=== PATIENT | female | born 1935 | race Caucasian/White ===

== ENCOUNTER 2021-01-04 13:11 | Inpatient (IN) | payer MEDICARE ==
[2021-01-04 14:15] LABS: Hemoglobin 15.5 g/dL (12.0-16.0); Mean Corpuscular HGB CONC 33.3 g/dL (32.0-36.0); Mean Corpuscular Hemoglobin 32.4 pg (27.0-31.0); Mean Corpuscular Volume 97.3 fL (78.0-98.0); Mean Platelet Volume 7.5 fL (7.4-10.4); Platelet Count 250 thou/uL (130-400); RBC Distribution Width 12.8 % (11.5-14.5); Red Blood Cell (RBC) Count 4.77 mill/uL (4.20-5.40); White Blood Cell (WBC) Count 6.1 thou/uL (4.8-10.8)
[2021-01-04] MEDS ORDERED: Aspirin Chewable 81 MG TAB ONE (14:40)
[2021-01-04 14:47] LABS: ALT (SGPT) 13 U/L (8-55); AST (SGOT) 16 U/L (5-34); Albumin 4.2 g/dL (3.4-4.8); Alkaline Phosphatase 173 U/L (40-110); Anion Gap 16 mmol/L (10-20); BUN (Urea Nitrogen) 12 mg/dL (9.8-20.1); Bilirubin, Total 0.5 mg/dL (0.2-1.2); Calc. Creatinine Clearance 0 mL/min (70-130); Calcium 9.3 mg/dL (7.8-10.44); Carbon Dioxide 21 mmol/L (23-31); Chloride 102 mmol/L (98-107); Globulin 3.2 g/dL (2.4-3.5); Glucose 107 mg/dL (83-110); MDiff Complete? YES; Potassium 4.5 mmol/L (3.5-5.1); Protein, Total 7.4 g/dL (5.8-8.1); Sodium 134 mmol/L (136-145)
[2021-01-04 14:48] LABS: Band 3 % (5-11); Eosinophils 1 % (0-10); Lymphocytes 26 % (21-51); Monocytes 11 % (0-10); Neutrophil 58 % (42-75); Platelet Morphology Comment Appears Adequate; RBC Morphology Normal
[2021-01-04] MEDS ORDERED: hydrALAZINE 20 MG/ML VIAL SLOW IVP PRN (15:09)
[2021-01-04] MEDS ORDERED: Enoxaparin Sodium 40 MG/0.4 ML SYRINGE SC SCH (15:15)
[2021-01-04 16:20] LABS: Prothrombin Time 12.8 sec (12.0-14.7)
[2021-01-04 16:21] LABS: PTT 31.2 sec (22.9-36.1)
[2021-01-04 16:38] VITALS: BMI 23.6
[2021-01-04 18:13] LABS: SARS-CoV-2 NAA Rapid Test Not Detected (NotDetected)
[2021-01-04] MEDS: Atorvastatin Calcium 40 MG TAB PO SCH (21:01)
[2021-01-05 06:14] LABS: #Eosinphils 0.2 thou/uL (0.0-0.7); #Lymphocytes 1.4 thou/uL (1.20-3.40); #Monocytes 0.6 thou/uL (0.11-0.59); #Neutrophils 3.8 thou/uL (1.40-6.50); %Basophils 0.6 % (0.0-1.0); %Lymphocytes 23.4 % (21.0-51.0); %Monocytes 10.3 % (0.0-10.0); %Neutrophils 62.7 % (42.0-75.0); Mean Corpuscular HGB CONC 33.4 g/dL (32.0-36.0); Mean Corpuscular Hemoglobin 32.3 pg (27.0-31.0); Mean Corpuscular Volume 96.5 fL (78.0-98.0); Mean Platelet Volume 7.2 fL (7.4-10.4); Platelet Count 314 thou/uL (130-400); RBC Distribution Width 12.8 % (11.5-14.5); Red Blood Cell (RBC) Count 4.34 mill/uL (4.20-5.40); White Blood Cell (WBC) Count 6.1 thou/uL (4.8-10.8)
[2021-01-05 06:32] LABS: Anion Gap 11 mmol/L (10-20); BUN (Urea Nitrogen) 11 mg/dL (9.8-20.1); Calc. Creatinine Clearance 54 mL/min (70-130); Carbon Dioxide 27 mmol/L (23-31); Cardiac Risk 3.2 (Less than 4.5); Chloride 102 mmol/L (98-107); Cholesterol 227 mg/dl (< 200 Desired); Glucose 122 mg/dL (83-110); HDL Cholesterol 70 mg/dL (>60 Neg Risk); LDL Cholesterol, Calculated 134 mg/dL; Sodium 136 mmol/L (136-145); Triglycerides 116 mg/dL (Less than 150)
[2021-01-05] MEDS: Enoxaparin Sodium 40 MG/0.4 ML SYRINGE SC SCH (09:10)
[2021-01-05] MEDS: Aspirin 81 mg Enteric Coated Tablet PO SCH (09:10)
[2021-01-05] MEDS ORDERED: FLU VACC QS2021-22(65YR UP)/PF 240 MCG/0.7 ML SYRINGE IM ONE (17:45)
[2021-01-05] MEDS: Atorvastatin Calcium 40 MG TAB PO SCH (20:43)
[2021-01-06] MEDS: Enoxaparin Sodium 40 MG/0.4 ML SYRINGE SC SCH (08:43)
[2021-01-06] MEDS: Aspirin 81 mg Enteric Coated Tablet PO SCH (08:43)
[2021-01-06 15:51] VITALS: BP 153/103; TEMP 98.1
== END 2021-01-06 17:55 | DRG 66 ==
LOC: ERS 13:11 → 3SE 15:16 → OBSVTOIN 01-05 12:35
PROVIDERS: ADMIT Internal Medicine; ATTEND Internal Medicine
DX: I63.9 Cerebral infarction, unspecified (principal); R47.81 Slurred speech; G30.9 Alzheimer's disease, unspecified; F02.80 Dementia in other diseases classified elsewhere, unspecified severity, without behavioral disturbance, psychotic disturbance, mood disturbance, and anxiety; Z66 Do not resuscitate; I10 Essential (primary) hypertension; Z20.822 Contact with and (suspected) exposure to COVID-19; Z85.3 Personal history of malignant neoplasm of breast; Z90.710 Acquired absence of both cervix and uterus
CPT/HCPCS: 36415; 36416; 70450; 70551; 71045; 80048; 80053; 80061; 84484; 85025; 85610; 85730; 93005; 93306; 93880; 96372; G0378; J0360; J1650; U0002

== ENCOUNTER 2021-03-26 20:43 | Emergency (ER) | payer MEDICARE ==
[2021-03-26 22:38] LABS: ALT (SGPT) 22 U/L (8-55); AST (SGOT) 27 U/L (5-34); Albumin 3.5 g/dL (3.4-4.8); Alkaline Phosphatase 181 U/L (40-110); Anion Gap 16 mmol/L (10-20); BUN (Urea Nitrogen) 22 mg/dL (9.8-20.1); Bilirubin, Total 0.6 mg/dL (0.2-1.2); Calc. Creatinine Clearance 0 mL/min (70-130); Calcium 8.8 mg/dL (7.8-10.44); Carbon Dioxide 22 mmol/L (23-31); Chloride 101 mmol/L (98-107); Globulin 3.1 g/dL (2.4-3.5); Glucose 134 mg/dL (83-110); Protein, Total 6.6 g/dL (5.8-8.1); Sodium 136 mmol/L (136-145)
[2021-03-26 22:44] LABS: Potassium 2.9 mmol/L (3.5-5.1)
[2021-03-26] MEDS ORDERED: Potassium Chloride 20 MEQ TAB ONE ×2 (22:44→22:55)
[2021-03-26 23:05] LABS: #Lymphocytes 1.2 thou/uL (1.20-3.40); %Basophils 0.2 % (0.0-1.0); %Eosinophils 0.2 % (0.0-10.0); %Monocytes 12.2 % (0.0-10.0); %Neutrophils 72.5 % (42.0-75.0); Hemoglobin 13.9 g/dL (12.0-16.0); Mean Corpuscular HGB CONC 34.4 g/dL (32.0-36.0); Mean Corpuscular Hemoglobin 33.7 pg (27.0-31.0); Mean Corpuscular Volume 97.9 fL (78.0-98.0); Platelet Count 231 thou/uL (130-400); RBC Distribution Width 13.1 % (11.5-14.5); Red Blood Cell (RBC) Count 4.13 mill/uL (4.20-5.40); White Blood Cell (WBC) Count 8.2 thou/uL (4.8-10.8)
== END 2021-03-27 00:41 ==
LOC: ERS 20:43
DX: U07.1 COVID-19 (principal); E87.6 Hypokalemia
CPT/HCPCS: 36415; 80053; 85025; 93005

== ENCOUNTER 2021-04-02 14:15 | Inpatient (IN) | payer MEDICARE ==
[2021-04-02] MEDS ORDERED: Ondansetron PF 4 MG/2 ML Vial ONE (15:10)
[2021-04-02 15:29] LABS: #Lymphocytes 1.3 thou/uL (1.20-3.40); #Monocytes 0.8 thou/uL (0.11-0.59); #Neutrophils 4.8 thou/uL (1.40-6.50); %Basophils 0.1 % (0.0-1.0); %Eosinophils 0.2 % (0.0-10.0); %Lymphocytes 18.4 % (21.0-51.0); %Monocytes 11.2 % (0.0-10.0); %Neutrophils 70.1 % (42.0-75.0); Hemoglobin 13.8 g/dL (12.0-16.0); Mean Corpuscular HGB CONC 34.2 g/dL (32.0-36.0); Mean Corpuscular Hemoglobin 32.9 pg (27.0-31.0); Mean Corpuscular Volume 96.2 fL (78.0-98.0); Mean Platelet Volume 6.7 fL (7.4-10.4); Platelet Count 277 thou/uL (130-400); RBC Distribution Width 12.9 % (11.5-14.5); White Blood Cell (WBC) Count 6.8 thou/uL (4.8-10.8)
[2021-04-02 15:44] LABS: ALT (SGPT) 26 U/L (8-55); AST (SGOT) 30 U/L (5-34); Albumin 3.6 g/dL (3.4-4.8); Alkaline Phosphatase 168 U/L (40-110); Anion Gap 14 mmol/L (10-20); BUN (Urea Nitrogen) 27 mg/dL (9.8-20.1); Bilirubin, Total 1.4 mg/dL (0.2-1.2); Calc. Creatinine Clearance 0 mL/min (70-130); Calcium 8.8 mg/dL (7.8-10.44); Carbon Dioxide 25 mmol/L (23-31); Chloride 101 mmol/L (98-107); Globulin 3.1 g/dL (2.4-3.5); Glucose 117 mg/dL (83-110); Protein, Total 6.7 g/dL (5.8-8.1); Sodium 137 mmol/L (136-145)
[2021-04-02 16:07] LABS: CKMB 1.1 ng/mL (0-6.6)
[2021-04-02] MEDS ORDERED: Aspirin Chewable 81 MG TAB ONE (16:15)
[2021-04-02 17:00] LABS: Bilirubin Negative (Negative); Blood, Urine Negative (Negative); Clarity Clear (Clear); Glucose, Urine (Dipstick) Normal (Negative); Ketone, Urine 10 mg/dL (Negative); Leukocyte Negative Leu/uL (Negative); Nitrite Negative (Negative); Protein, Urine (Dipstick) 10 mg/dL (Neg-Trace); Specific Gravity, Urine 1.021 (1.002-1.036)
[2021-04-02] MEDS ORDERED: Potassium Chloride 20 MEQ in Premix Bag 1 BAG IVPB ONE (18:04)
[2021-04-02] MEDS ORDERED: Ondansetron ODT 4 MG TAB PO PRN (18:07)
[2021-04-02] MEDS ORDERED: Acetaminophen 650 MG Suppository PR PRN (18:07)
[2021-04-02] MEDS ORDERED: Acetaminophen 325 MG TAB PO PRN (18:07)
[2021-04-02] MEDS ORDERED: Ondansetron PF 4 MG/2 ML Vial IVP PRN (18:07)
[2021-04-02] MEDS ORDERED: Senokot S 8.6-50 MG TAB PO PRN (18:07)
[2021-04-02] MEDS ORDERED: Potassium Chloride 20 MEQ TAB ONE (18:49)
[2021-04-02 19:00] LABS: Troponin I 0.038 ng/mL (< 0.028)
[2021-04-02 19:01] LABS: CRP (Inflammatory) 3.42 mg/dL (= or < 0.5); Magnesium 1.8 mg/dL (1.6-2.6)
[2021-04-02] MEDS: Sodium Chloride 0.9% 1,000 ML IV SCH (19:12)
[2021-04-02] MEDS ORDERED: Potassium Chloride 20 MEQ TAB PO SCH (19:15)
[2021-04-02] MEDS ORDERED: HumaLOG 300 UNITS/3 ML VIAL SC PRN ×2 (19:55)
[2021-04-02] MEDS ORDERED: Dextrose 5% in Water 1,000 ML IV PRN (19:55)
[2021-04-02] MEDS ORDERED: Dextrose 50% Abboject 50 ML SYRINGE SLOW IVP PRN (19:55)
[2021-04-02 21:48] LABS: Troponin I 0.047 ng/mL (< 0.028)
[2021-04-02 22:11] LABS: SARS-CoV-2 NAA Rapid Test DETECTED (NotDetected)
[2021-04-03] MEDS ORDERED: Famotidine/PF 20 mg/2ml Vial ONE (01:12)
[2021-04-03] MEDS ORDERED: Enoxaparin Sodium 40 MG/0.4 ML SYRINGE ONE (01:12)
[2021-04-03] MEDS: Enoxaparin Sodium 40 MG/0.4 ML SYRINGE SC SCH ×2 (01:24→20:15)
[2021-04-03] MEDS: Famotidine/PF 20 mg/2ml Vial SLOW IVP SCH ×3 (01:25→20:15)
[2021-04-03 03:49] VITALS: BMI 22.8
[2021-04-03] MEDS: Sodium Chloride 0.9% 1,000 ML IV SCH (04:11)
[2021-04-03 08:38] LABS: Anion Gap 13 mmol/L (10-20); BUN (Urea Nitrogen) 13 mg/dL (9.8-20.1); Calc. Creatinine Clearance 65 mL/min (70-130); Calcium 7.8 mg/dL (7.8-10.44); Carbon Dioxide 18 mmol/L (23-31); Chloride 108 mmol/L (98-107); Glucose 100 mg/dL (83-110); Potassium 3.3 mmol/L (3.5-5.1); Sodium 136 mmol/L (136-145)
[2021-04-03] MEDS: Zinc Sulfate 220 MG CAP PO SCH (09:53)
[2021-04-03] MEDS: Ascorbic Acid 500 mg Chewable Tablet PO SCH (09:53)
[2021-04-03 09:57] LABS: Hemoglobin 12.6 g/dL (12.0-16.0); Mean Corpuscular HGB CONC 32.4 g/dL (32.0-36.0); Mean Corpuscular Hemoglobin 31.9 pg (27.0-31.0); Mean Corpuscular Volume 98.4 fL (78.0-98.0); Mean Platelet Volume 6.8 fL (7.4-10.4); Platelet Count 255 thou/uL (130-400); RBC Distribution Width 12.9 % (11.5-14.5); Red Blood Cell (RBC) Count 3.95 mill/uL (4.20-5.40); White Blood Cell (WBC) Count 7.6 thou/uL (4.8-10.8)
[2021-04-03 11:21] LABS: Band 7 % (5-11); Lymphocytes 21 % (21-51); MDiff Complete? YES; Monocytes 7 % (0-10); Neutrophil 65 % (42-75)
[2021-04-03] MEDS ORDERED: Potassium Chloride 10 MEQ in Dextrose 5 % And 0.9 % NaCl 1,000 ML IV SCH (14:45)
[2021-04-03] MEDS ORDERED: D5 0.9% NS w/ 20 mEq KCl 1,000 ML IV SCH (15:00)
[2021-04-03] MEDS: D5 0.9% NS w/ 20 mEq KCl 1,000 ML IV SCH (16:02)
[2021-04-03] MEDS: hydrALAZINE 20 MG/ML VIAL SLOW IVP PRN (16:22)
[2021-04-03] MEDS ORDERED: Metoprolol Tartrate 50 MG TAB PO SCH (18:00)
[2021-04-03] MEDS ORDERED: HYDROcodone/Acetaminophen 5/325 mg Tablet PO PRN (18:08)
[2021-04-03] MEDS ORDERED: Potassium Chloride 20 MEQ in Premix Bag 1 BAG IVPB SCH ×2 (18:15→20:00)
[2021-04-03] MEDS ORDERED: Magnesium 2 GM/50 ML 2 GM in Premix Bag 1 BAG IVPB SCH (18:15)
[2021-04-03] MEDS: Morphine 4 MG/ML VIAL SLOW IVP PRN (18:50)
[2021-04-03 19:00] LABS: Troponin I 0.049 ng/mL (< 0.028)
[2021-04-03] MEDS: Atorvastatin Calcium 40 MG TAB PO SCH (20:15)
[2021-04-03] MEDS: Metoprolol Tartrate 50 MG TAB PO SCH (20:15)
[2021-04-04] MEDS ORDERED: Electrolyte Replacement Protocol 1 EACH FS SCH (00:45)
[2021-04-04 02:43] LABS: Anion Gap 16 mmol/L (10-20); BUN (Urea Nitrogen) 11 mg/dL (9.8-20.1); Calc. Creatinine Clearance 68 mL/min (70-130); Calcium 7.8 mg/dL (7.8-10.44); Carbon Dioxide 18 mmol/L (23-31); Chloride 104 mmol/L (98-107); Glucose 106 mg/dL (83-110); Sodium 135 mmol/L (136-145)
[2021-04-04 02:50] LABS: Potassium 2.9 mmol/L (3.5-5.1)
[2021-04-04] MEDS: Potassium Chloride 20 MEQ TAB PO SCH ×2 (03:34→04:04)
[2021-04-04] MEDS ORDERED: Potassium Chloride 20 MEQ in Premix Bag 2 BAG IVPB SCH (04:00)
[2021-04-04] MEDS: Potassium Chloride 40 MEQ in Sodium Chloride 0.9% 250 ML 200 ML IVPB SCH ×2 (04:50→12:30)
[2021-04-04] MEDS: Morphine 4 MG/ML VIAL SLOW IVP PRN (05:35)
[2021-04-04] MEDS ORDERED: Aspirin 325 mg Enteric Coated Tablet PO SCH (09:00)
[2021-04-04] MEDS: Ascorbic Acid 500 mg Chewable Tablet PO SCH (10:01)
[2021-04-04] MEDS: Famotidine/PF 20 mg/2ml Vial SLOW IVP SCH ×2 (10:01→20:00)
[2021-04-04] MEDS: Aspirin Chewable 81 MG TAB PO SCH (10:01)
[2021-04-04] MEDS: Metoprolol Tartrate 50 MG TAB PO SCH ×2 (10:02→20:00)
[2021-04-04] MEDS: Enoxaparin Sodium 80 MG/0.8 ML SYRINGE SC SCH ×2 (10:02→20:00)
[2021-04-04] MEDS: Zinc Sulfate 220 MG CAP PO SCH (10:02)
[2021-04-04 10:04] LABS: #Basophils 0.1 thou/uL (0.0-0.2); #Eosinphils 0.1 thou/uL (0.0-0.7); #Lymphocytes 1.2 thou/uL (1.20-3.40); #Monocytes 0.7 thou/uL (0.11-0.59); #Neutrophils 3.6 thou/uL (1.40-6.50); %Eosinophils 1.1 % (0.0-10.0); %Lymphocytes 21.8 % (21.0-51.0); %Monocytes 12.1 % (0.0-10.0); Hemoglobin 13.2 g/dL (12.0-16.0); Mean Corpuscular HGB CONC 31.9 g/dL (32.0-36.0); Mean Corpuscular Hemoglobin 31.9 pg (27.0-31.0); Mean Corpuscular Volume 99.8 fL (78.0-98.0); Mean Platelet Volume 6.6 fL (7.4-10.4); Platelet Count 271 thou/uL (130-400); Red Blood Cell (RBC) Count 4.13 mill/uL (4.20-5.40); White Blood Cell (WBC) Count 5.6 thou/uL (4.8-10.8)
[2021-04-04 10:22] LABS: Anion Gap 14 mmol/L (10-20); BUN (Urea Nitrogen) 10 mg/dL (9.8-20.1); CRP (Inflammatory) 3.85 mg/dL (= or < 0.5); Calc. Creatinine Clearance 75 mL/min (70-130); Calcium 8.2 mg/dL (7.8-10.44); Carbon Dioxide 19 mmol/L (23-31); Chloride 104 mmol/L (98-107); Glucose 87 mg/dL (83-110); Magnesium 2.1 mg/dL (1.6-2.6); Potassium 4.3 mmol/L (3.5-5.1); Sodium 133 mmol/L (136-145)
[2021-04-04] MEDS: D5 0.9% NS w/ 20 mEq KCl 1,000 ML IV SCH (14:31)
[2021-04-04] MEDS: Atorvastatin Calcium 40 MG TAB PO SCH (20:00)
[2021-04-04] MEDS: hydrALAZINE 20 MG/ML VIAL SLOW IVP PRN (20:21)
[2021-04-05 05:26] LABS: #Eosinphils 0.1 thou/uL (0.0-0.7); #Lymphocytes 1.1 thou/uL (1.20-3.40); #Monocytes 0.8 thou/uL (0.11-0.59); #Neutrophils 5.6 thou/uL (1.40-6.50); %Basophils 0.4 % (0.0-1.0); %Eosinophils 0.7 % (0.0-10.0); %Lymphocytes 15.1 % (21.0-51.0); %Monocytes 9.9 % (0.0-10.0); %Neutrophils 73.8 % (42.0-75.0); Hemoglobin 12.4 g/dL (12.0-16.0); Mean Corpuscular HGB CONC 33.8 g/dL (32.0-36.0); Mean Corpuscular Hemoglobin 32.3 pg (27.0-31.0); Mean Corpuscular Volume 95.5 fL (78.0-98.0); Mean Platelet Volume 6.8 fL (7.4-10.4); Platelet Count 298 thou/uL (130-400); RBC Distribution Width 12.7 % (11.5-14.5); Red Blood Cell (RBC) Count 3.83 mill/uL (4.20-5.40); White Blood Cell (WBC) Count 7.6 thou/uL (4.8-10.8)
[2021-04-05 05:40] LABS: Anion Gap 14 mmol/L (10-20); BUN (Urea Nitrogen) 10 mg/dL (9.8-20.1); CRP (Inflammatory) 3.03 mg/dL (= or < 0.5); Calc. Creatinine Clearance 65 mL/min (70-130); Calcium 8.2 mg/dL (7.8-10.44); Carbon Dioxide 19 mmol/L (23-31); Chloride 106 mmol/L (98-107); Glucose 135 mg/dL (83-110); Potassium 3.3 mmol/L (3.5-5.1); Sodium 136 mmol/L (136-145)
[2021-04-05] MEDS ORDERED: Potassium Chloride 20 MEQ TAB PO SCH (06:00)
[2021-04-05] MEDS: D5 0.9% NS w/ 20 mEq KCl 1,000 ML IV SCH (09:28)
[2021-04-05] MEDS ORDERED: Amlodipine 5 MG TAB PO SCH (09:30)
[2021-04-05] MEDS: Enoxaparin Sodium 80 MG/0.8 ML SYRINGE SC SCH ×2 (11:00→19:30)
[2021-04-05] MEDS: Famotidine/PF 20 mg/2ml Vial SLOW IVP SCH ×2 (11:00→19:20)
[2021-04-05] MEDS: Metoprolol Tartrate 50 MG TAB PO SCH ×2 (11:49→19:20)
[2021-04-05] MEDS: Ascorbic Acid 500 mg Chewable Tablet PO SCH (11:49)
[2021-04-05] MEDS: Aspirin Chewable 81 MG TAB PO SCH (11:49)
[2021-04-05] MEDS: Zinc Sulfate 220 MG CAP PO SCH (11:50)
[2021-04-05] MEDS: Atorvastatin Calcium 40 MG TAB PO SCH (19:20)
[2021-04-06] MEDS: D5W-AA 4.25% with LYTES 1,000 ML IV SCH ×2 (00:17→17:54)
[2021-04-06 06:55] LABS: #Eosinphils 0.1 thou/uL (0.0-0.7); #Lymphocytes 1.3 thou/uL (1.20-3.40); #Monocytes 0.8 thou/uL (0.11-0.59); #Neutrophils 4.5 thou/uL (1.40-6.50); %Basophils 0.7 % (0.0-1.0); %Eosinophils 1.2 % (0.0-10.0); %Lymphocytes 19.2 % (21.0-51.0); %Monocytes 12.2 % (0.0-10.0); %Neutrophils 66.8 % (42.0-75.0); Hemoglobin 12.9 g/dL (12.0-16.0); Mean Corpuscular HGB CONC 33.9 g/dL (32.0-36.0); Mean Corpuscular Hemoglobin 32.8 pg (27.0-31.0); Mean Corpuscular Volume 96.9 fL (78.0-98.0); Mean Platelet Volume 6.4 fL (7.4-10.4); Platelet Count 340 thou/uL (130-400); RBC Distribution Width 12.6 % (11.5-14.5); Red Blood Cell (RBC) Count 3.93 mill/uL (4.20-5.40); White Blood Cell (WBC) Count 6.7 thou/uL (4.8-10.8)
[2021-04-06 07:15] LABS: Anion Gap 14 mmol/L (10-20); BUN (Urea Nitrogen) 11 mg/dL (9.8-20.1); CRP (Inflammatory) 3.13 mg/dL (= or < 0.5); Calc. Creatinine Clearance 65 mL/min (70-130); Calcium 8.3 mg/dL (7.8-10.44); Carbon Dioxide 20 mmol/L (23-31); Cardiac Risk 2.9 (Less than 4.5); Chloride 104 mmol/L (98-107); Cholesterol 129 mg/dl (< 200 Desired); Glucose 135 mg/dL (83-110); HDL Cholesterol 44 mg/dL (>60 Neg Risk); LDL Cholesterol, Calculated 67 mg/dL; Magnesium 1.7 mg/dL (1.6-2.6); Potassium 3.2 mmol/L (3.5-5.1); Sodium 135 mmol/L (136-145); Triglycerides 88 mg/dL (Less than 150)
[2021-04-06] MEDS ORDERED: Potassium Chloride 20 MEQ TAB PO SCH (07:30)
[2021-04-06] MEDS ORDERED: Magnesium 2 GM/50 ML 2 GM in Premix Bag 1 BAG IVPB SCH (07:30)
[2021-04-06] MEDS ORDERED: Metoprolol Tartrate 5 MG/5 ML VIAL IVP PRN (07:53)
[2021-04-06] MEDS: Enoxaparin Sodium 80 MG/0.8 ML SYRINGE SC SCH ×2 (09:36→21:24)
[2021-04-06] MEDS: Famotidine/PF 20 mg/2ml Vial SLOW IVP SCH ×2 (09:36→21:24)
[2021-04-06] MEDS: Ascorbic Acid 500 mg Chewable Tablet PO SCH (09:58)
[2021-04-06] MEDS: Amlodipine 5 MG TAB PO SCH (09:58)
[2021-04-06] MEDS: Zinc Sulfate 220 MG CAP PO SCH (09:59)
[2021-04-06] MEDS: Aspirin Chewable 81 MG TAB PO SCH (10:00)
[2021-04-06] MEDS: Potassium Chloride 20 MEQ in Premix Bag 1 BAG IVPB SCH ×2 (10:44→13:10)
[2021-04-06] MEDS: hydrALAZINE 20 MG/ML VIAL SLOW IVP PRN (12:18)
[2021-04-06] MEDS ORDERED: Metoprolol Tartrate 5 MG/5 ML VIAL IVP SCH (16:00)
[2021-04-06] MEDS: Metoprolol Tartrate 5 MG/5 ML VIAL IVP SCH ×2 (17:54→23:42)
[2021-04-06] MEDS: Atorvastatin Calcium 40 MG TAB PO SCH (21:24)
[2021-04-07] MEDS: Metoprolol Tartrate 5 MG/5 ML VIAL IVP SCH ×4 (05:22→23:53)
[2021-04-07 06:07] LABS: #Basophils 0.1 thou/uL (0.0-0.2); #Eosinphils 0.1 thou/uL (0.0-0.7); #Lymphocytes 1.1 thou/uL (1.20-3.40); #Neutrophils 6.3 thou/uL (1.40-6.50); %Eosinophils 0.9 % (0.0-10.0); %Lymphocytes 13.1 % (21.0-51.0); %Monocytes 11.9 % (0.0-10.0); %Neutrophils 73.2 % (42.0-75.0); Hemoglobin 12.5 g/dL (12.0-16.0); Mean Corpuscular Hemoglobin 32.4 pg (27.0-31.0); Mean Corpuscular Volume 95.2 fL (78.0-98.0); Mean Platelet Volume 6.6 fL (7.4-10.4); Platelet Count 375 thou/uL (130-400); RBC Distribution Width 12.7 % (11.5-14.5); Red Blood Cell (RBC) Count 3.87 mill/uL (4.20-5.40); White Blood Cell (WBC) Count 8.6 thou/uL (4.8-10.8)
[2021-04-07 06:28] LABS: Anion Gap 10 mmol/L (10-20); BUN (Urea Nitrogen) 19 mg/dL (9.8-20.1); CRP (Inflammatory) 3.35 mg/dL (= or < 0.5); Calc. Creatinine Clearance 59 mL/min (70-130); Calcium 8.3 mg/dL (7.8-10.44); Carbon Dioxide 25 mmol/L (23-31); Chloride 103 mmol/L (98-107); Glucose 125 mg/dL (83-110); Magnesium 2.1 mg/dL (1.6-2.6); Potassium 3.5 mmol/L (3.5-5.1); Sodium 134 mmol/L (136-145)
[2021-04-07] MEDS ORDERED: Potassium Chloride 40 MEQ in Sodium Chloride 0.9% 250 ML 250 ML IVPB SCH (08:00)
[2021-04-07] MEDS: hydrALAZINE 20 MG/ML VIAL SLOW IVP PRN (09:26)
[2021-04-07] MEDS: Famotidine/PF 20 mg/2ml Vial SLOW IVP SCH ×2 (09:27→21:24)
[2021-04-07] MEDS: Aspirin Chewable 81 MG TAB PO SCH (09:27)
[2021-04-07] MEDS: Ascorbic Acid 500 mg Chewable Tablet PO SCH (09:27)
[2021-04-07] MEDS: Enoxaparin Sodium 80 MG/0.8 ML SYRINGE SC SCH ×2 (09:27→21:23)
[2021-04-07] MEDS: Amlodipine 5 MG TAB PO SCH (09:27)
[2021-04-07] MEDS: Zinc Sulfate 220 MG CAP PO SCH (09:28)
[2021-04-07] MEDS ORDERED: AA 4.25 %/CALCIUM/LYTES/D5W 2,000 ML IV SCH (14:45)
[2021-04-07] MEDS ORDERED: Potassium Chloride 20 MEQ TAB PO SCH (16:00)
[2021-04-07] MEDS: Atorvastatin Calcium 40 MG TAB PO SCH ×2 (21:23)
[2021-04-08 07:39] LABS: #Eosinphils 0.1 thou/uL (0.0-0.7); #Lymphocytes 1.5 thou/uL (1.20-3.40); #Monocytes 1.1 thou/uL (0.11-0.59); %Basophils 0.4 % (0.0-1.0); %Lymphocytes 17.3 % (21.0-51.0); %Neutrophils 68.3 % (42.0-75.0); Hemoglobin 13.5 g/dL (12.0-16.0); Mean Corpuscular HGB CONC 33.6 g/dL (32.0-36.0); Mean Corpuscular Hemoglobin 32.5 pg (27.0-31.0); Mean Corpuscular Volume 96.9 fL (78.0-98.0); Platelet Count 326 thou/uL (130-400); RBC Distribution Width 12.9 % (11.5-14.5); Red Blood Cell (RBC) Count 4.15 mill/uL (4.20-5.40); White Blood Cell (WBC) Count 8.7 thou/uL (4.8-10.8)
[2021-04-08 08:03] LABS: Anion Gap 17 mmol/L (10-20); BUN (Urea Nitrogen) 19 mg/dL (9.8-20.1); Calc. Creatinine Clearance 61 mL/min (70-130); Calcium 8.5 mg/dL (7.8-10.44); Carbon Dioxide 19 mmol/L (23-31); Chloride 104 mmol/L (98-107); Glucose 102 mg/dL (83-110); Potassium 3.5 mmol/L (3.5-5.1); Sodium 136 mmol/L (136-145)
[2021-04-08] MEDS ORDERED: Potassium Chloride 20 MEQ TAB PO SCH (08:45)
[2021-04-08] MEDS: Amlodipine 5 MG TAB PO SCH (09:31)
[2021-04-08] MEDS: Ascorbic Acid 500 mg Chewable Tablet PO SCH (09:31)
[2021-04-08] MEDS: Aspirin Chewable 81 MG TAB PO SCH (09:31)
[2021-04-08] MEDS: Zinc Sulfate 220 MG CAP PO SCH (09:32)
[2021-04-08] MEDS: Famotidine/PF 20 mg/2ml Vial SLOW IVP SCH (09:32)
[2021-04-08] MEDS: Enoxaparin Sodium 80 MG/0.8 ML SYRINGE SC SCH (09:36)
[2021-04-08 17:48] VITALS: BP 147/91; TEMP 97.8
== END 2021-04-08 19:00 | disposition hospice, inpatient (51) | DRG 178 ==
LOC: ERS 14:15 → ERHOLD 16:33 → 2SE 04-03 03:21 → OBSVTOIN 04-03 14:58
PROVIDERS: ADMIT Family Medicine; ATTEND Family Medicine
PROC: 8E0ZXY6 Isolation (ICD-10-PCS; principal; 2021-04-03)
DX: U07.1 COVID-19 (principal); I47.1 Supraventricular tachycardia; I10 Essential (primary) hypertension; E87.6 Hypokalemia; E86.0 Dehydration; R73.9 Hyperglycemia, unspecified; G30.9 Alzheimer's disease, unspecified; F02.80 Dementia in other diseases classified elsewhere, unspecified severity, without behavioral disturbance, psychotic disturbance, mood disturbance, and anxiety; I48.91 Unspecified atrial fibrillation; R13.10 Dysphagia, unspecified; Z66 Do not resuscitate; Z51.5 Encounter for palliative care; Z86.73 Personal history of transient ischemic attack (TIA), and cerebral infarction without residual deficits; Z85.3 Personal history of malignant neoplasm of breast; Z88.1 Allergy status to other antibiotic agents; Z79.82 Long term (current) use of aspirin; Z79.899 Other long term (current) drug therapy; Z90.710 Acquired absence of both cervix and uterus; Z87.891 Personal history of nicotine dependence
CPT/HCPCS: 36415; 36416; 71045; 80048; 80053; 80061; 81003; 82553; 83615; 83735; 84484; 85025; 86140; 93005; 93306; 96372; 96375; 96376; G0378; J0360; J1650; J2270; J2405; J3475; J3480; J7050; S0028; U0002